=== PATIENT | female | born 1995 | race Caucasian/White ===

== ENCOUNTER → 2018-01-09 10:10 | Outpatient (CLI) | payer OTHER, SELFPAY ==
--- NOTE | 2018-01-09 10:10 | DT_ITS ---
This patient was seen during an EMR downtime January 09, 2018 - January 16, 2018. This patient may have a combination of paper and electronic documentation or all paper documentation. All documentation is viewable within the e-chart portion of markedup for each patient visit.
[2018-01-24 16:01] LABS: HPV Reflexed? NOT INDICATED
== END ==
PROVIDERS: Visit Provider Obstetrics & Gynecology
DX: Z12.4 Encounter for screening for malignant neoplasm of cervix (principal)
CPT/HCPCS: 88175; G0145